=== PATIENT | female | born 1945 | race African-American/Black ===

== ENCOUNTER 2022-02-05 15:42 | Emergency (ER) | payer MEDICARE, MEDICAID ==
[~2022-02-05] VITALS: Ht 162.6 cm; Wt 82.0 kg
[2022-02-05 16:02] VITALS: BP 184/77
[2022-02-05] MEDS ORDERED: TETRACAINE 0.5% OPHTH DROPS 4ML RIGHTEYE ONE (17:30)
[2022-02-05] MEDS ORDERED: AMOX1TAB16 MT (18:16)
[2022-02-05] MEDS ORDERED: OFLO5DRO3 RIGHTEYE (18:16)
== END 2022-02-05 18:42 | disposition home or self-care (01) ==
LOC: ER 15:42 → EDBD 15:42 → ER 18:42
DX: H57.89 Other specified disorders of eye and adnexa (principal)
CPT/HCPCS: 99283